=== PATIENT | male | born 1985 | race Caucasian/White ===

== ENCOUNTER 2018-09-04 14:52 | Observation (INO) | payer OTHER, SELFPAY ==
[2018-09-04] MEDS ORDERED: ACETAMINOPHEN 500 MG TAB PO PRN (15:25)
[2018-09-04] MEDS ORDERED: MORPHINE 2 MG/ML SYR IV PRN (15:25)
[2018-09-04 16:18] LABS: HDL Cholesterol 28 mg/dL (40-60); LDL Cholesterol, Calculated ND (<130); Troponin I < 0.02 ng/mL (0.0-0.045)
[2018-09-04 16:31] LABS: LDL, Direct 110 mg/dL (100-129)
[2018-09-04 16:59] VITALS: BMI 39.1
[2018-09-04 17:09] LABS: Urine Appearance CLEAR; Urine Bilirubin NEGATIVE (NEG); Urine Blood NEGATIVE (NEG); Urine Color YELLOW; Urine Glucose NEGATIVE (NEG); Urine Protein NEGATIVE (NEG); Urine Specific Gravity <=1.005 (1.005-1.030); Urine Urobilinogen 0.2 mg/dL (0.2-1.0); Urine pH 6.5 (5.0-7.0)
[2018-09-04 17:27] LABS: Urine Microscopic Reflex NO UMIC
[2018-09-04] MEDS ORDERED: NITROGLYCERIN 0.4 MG/TAB SL PRN (19:05)
[2018-09-04] MEDS ORDERED: ATORVASTATIN 40 MG TAB PO SCH (21:00)
[2018-09-04] MEDS: ENOXAPARIN 40 MG/0.4 ML SQ SCH ×2 (21:00→21:56)
[2018-09-04] MEDS: METOPROLOL TAR 50 MG TAB PO SCH (21:52)
--- NOTE | 2018-09-05 02:59 | HP ---
Date of Admission: 09/04/2018 Chief Complaint: Chest pain. Primary Care Physician: None. History Of Present Illness: The patient is a 32-year-old male with past medical history of cluster h eadaches and hypertension, who was a direct admit from [facility] for chest pain. The patient does smo ke. The patient has been in and out of his medications over the past few months and his blood pressu res were running on the high side. The patient has been complaining of some chest tightness, which i s intermittent, progressively worsening, and moderate. The patient denies any shortness of breath, n ausea, vomiting, diaphoresis, or palpitations. Denies any abdominal pain, cough, or congestion. The patient went to [place] [facility] for further evaluation. His initial workup including troponin level and EK G was negative. He was sent to [facility] for further evaluation and workup. When th e patient arrived to the floor, he was awake, alert, and oriented x3, in some mild distress, still co mplaining of some chest pain. Past Medical History: Hypertension, cluster headaches, and borderline diabetes. Past Surgical History: None. Allergies: NO KNOWN DRUG ALLERGIES. Medications: Lisinopril 40 mg, verapamil. Social History: The patient is , works at the plant at [employer], smokes half pack cigarettes daily since the age of 7, and drinks alcohol socially. No daily drinking. Family History: Diabetes and stroke run in the family. Review of Systems: An 11-point system reviewed, negative except as per HPI. Physical Examination: Vital Signs: Blood pressure 122/65, heart rate 72, respirations 12, and O2 saturation 97%. General: Awake, alert, and oriented x3, in some mild distress due to chest pain. Ill-appearing, mor bidly obese male. HEENT: Normocephalic, atraumatic. PERRLA. EOMI. Moist mucous membranes. Oropharynx is clear. No rmal dentition. Conjunctivae anicteric. Neck: Supple. No JVD. Trachea midline. CV: S1, S2. Regular rate and rhythm. A 3/6 murmur present. Peripheral pulses are present. Gastrointestinal: Abdomen is soft, nontender, and nondistended. Positive bowel sounds. No guarding or rigidity. Respiratory: Clear to auscultation bilaterally. No wheezing or stridor. No use of accessory muscle s. Extremities: No clubbing, cyanosis, or edema. No calf tenderness. Neuro: Cranial nerves 2-12 intact grossly. No focal neurological deficit. Speech is normal. Skin: No rashes. Normal skin turgor. Laboratory Data: Glucose 99, BUN 11, creatinine 1.2, calcium 9.8, sodium 143, potassium 3.8, chlorid e 111, CO2 25, and albumin 3.9. Troponin from [place] is 0.00. WBC 9.1, H and H 15.9 and 47.4, and pl atelets 308. Chest x-ray from [place] [facility] shows no acute cardiopulmonary abnormality. Troponin repeat levels less than 0.02. Triglycerides 459, cholesterol 172, and HDL 28. Assessment And Plan: A 32-year-old male with: 1.Chest pain, rule out ACS. The patient does have multiple risk factors including diabetes, hyperte nsion, nicotine dependence, and still complaining of chest pain. We will start on beta-anjelica, ZUHAIR inhibitor. The patient has received 1 mg/kg dose of Lovenox in [place]. If the pain is not relieved b y nitro sublingual, we will go ahead and give morphine. We will consult Cardiology, obtain echocardi ogram. 2.Morbid obesity. 3.Essential hypertension, uncontrolled. The patient was recently out of his medications. We will r esume home medications as appropriate. 4.Hypertriglyceridemia. 5.Borderline diabetes. We will check hemoglobin A1c. 6.GI and DVT prophylaxis addressed. Admit the patient to Med-Surg, place as observation. RAQUEL Voice ID: [id number]
[2018-09-05 05:11] LABS: Absolute Monocytes 0.8 K/uL (0.1-1.3); Absolute Neutrophil 4.9 K/uL (1.8-8.0); Basophils % 1.2 % (0-1.3); Eosinophils % 2.5 % (0-4.4); Hematocrit 44.4 % (39.6-49.0); Lymphocytes % 33.7 % (15.3-44.8); MCH 30.8 pg (27.0-35.0); MCV 89.5 fL (80-100); MPV 8.4 fL (7.6-11.3); Monocytes % 8.5 % (3.3-12.3); RBC Red Blood Cell Count 4.96 M/uL (4.33-5.43)
[2018-09-05 05:25] LABS: BUN Blood Urea Nitrogen 15 mg/dL (7-18); Bicarbonate 25 mmol/L (21-32); Glucose Level 94 mg/dL (74-106); Potassium 4.1 mmol/L (3.5-5.1); Sodium Level 139 mmol/L (136-145)
--- NOTE | 2018-09-05 08:29 | EKG ---
Test Date: 2018-09-04 Test Time: 16:35:04 Head Chef: IBETH MEASUREMENT RESULTS: Intervals: Rate: 64 MT: 158 QRSD: 88 QT: 424 QTc: 437 Rice: P: 32 MT: 158 QRS: 13 T: 47 INTERPRETIVE STATEMENTS: Normal sinus rhythm Normal ECG Compared to ECG 03/06/2004 23:55:00 Sinus arrhythmia no longer present Electronically Signed On 09-05-18 08:28:48 BEEF CATTLE SPECIALIST by Fausto Spangler
[2018-09-05] MEDS: METOPROLOL TAR 50 MG TAB PO SCH (08:45)
[2018-09-05 08:48] VITALS: BP 124/60
[2018-09-05] MEDS ORDERED: LISINOPRIL 20 MG TAB PO SCH (09:00)
[2018-09-05] MEDS ORDERED: LISINOPRIL 10 MG TAB PO SCH (09:00)
[2018-09-05] MEDS ORDERED: ENOXAPARIN 40 MG/0.4 ML SQ SCH (09:00)
[2018-09-05] MEDS ORDERED: ASPIRIN EC 81 MG TAB PO SCH (09:00)
[2018-09-05] MEDS ORDERED: HOME MED 1 EA UNK (Lisinopril [Lisinopril] 1 TAB) PO SCH (09:00)
[2018-09-05 10:43] VITALS: TEMP 97
[2018-09-05 12:58] VITALS: O2SAT 100
--- NOTE | 2018-09-05 15:02 | CON ---
CARDIOLOGY CONSULT Additional Attending Physician: Bob Jaramillo DO. Chief Complaint: Chest pain. History Of Present Illness: Mr. Martinez is getting chest pain that is not very suggestive of being damion na or an acute coronary syndrome. It is a pain that does not seem to have a pattern, comes and goes, sometimes 1 or 2 seconds, sometimes 15 minutes. When it is there, nothing in particular seems to he lp it, it is not related to exertion or meals or body position. He is not having pain now since he h as been in the hospital. An EKG, echocardiogram and cardiac enzymes are all normal. The patient has never had myocardial infarction or stroke. A nonfasting triglyceride level was 459, but his direct LDL is 110, so that his fasting triglycerides are probably close to normal. He has blood sugars that are normal. BUN and creatinine normal. Complete blood count normal. Troponins normal. Physical Examination: Vital Signs: 5 feet 9 inches, 265 pounds. General: Obese, alert, oriented, pleasant, not in distress. Lungs: Clear. Cardiac: Normal. Abdomen: Soft. Extremities: Normal. Normal pulses. Electrocardiogram shows everything is normal. I believe, the patient could be discharged home. He c an do an outpatient stress test. We could do a trial of colchicine to see if it is a case of pericar ditis, but there is no friction rub, no EKG changes, nontypical symptoms, still trying a dose of colc hicine would not be harmful at all and might help. Dr. Jaramillo has decided that if the patient is discharged, he can call my office for an o utpatient stress test. DENA Voice ID: [id number] Report ID: [id number]
--- NOTE | 2018-09-06 10:50 | DS ---
Date of Discharge: 09/05/2018 Consultants: Dr. Spangler with Cardiology. Discharge Diagnoses: 1.Chest pain; acute coronary syndrome; ruled out. 2.Obesity, BMI 39.1. 3.Essential hypertension, uncontrolled, improved. 4.Prediabetes. Hemoglobin A1c of 6.2%. Diet and exercise modification. 5.Hypertriglyceridemia. Hospital Course: The patient is a 32-year-old male who was a direct admit from [place] [facility], comes in wi th chest pain. The patient's cardiac workup was negative. EKG did not show any acute changes. ACS was ruled out. Echocardiogram was done, which showed normal ejection fraction. The patient was eval uated by Dr. Spangler, who recommended outpatient workup. The patient did have some elevated blood pre ssure over the past several weeks as he had run out of his blood pressure medication. He takes verap nurys for his cluster headaches only as needed. He takes lisinopril daily. The patient's blood press ure improved with medication adjustment. His symptoms resolved. The patient was then [facility] and was sent home in a stable condition. Activity: As tolerated. Medications: As per medication reconciliation list. Followup: Follow up with primary care physician in 2 to 3 days. Follow up with furniture finisher, Dr. Sarkis rachel, in 2 weeks. Return to ER for worsening condition. Diet: Heart healthy, calorie-restricted diet. The patient is prediabetic. He was counseled regardi ng carbohydrates. Physical Examination: General: Awake, alert, oriented, no acute distress. CV: S1, S2. No murmurs. Respiratory: Clear to auscultation bilaterally. No wheezing. Gastrointestinal: Abdomen is soft, nontender, nondistended. Positive bowel sounds. Extremities: No clubbing, cyanosis, or edema. Neuro: Nonfocal. The patient counseled extensively regarding his diet and exercise modification. He is prediabetic. He has elevated triglycerides. He needs repeat lipid panel in about a month after medications have b een started. He needs to reestablish care with the primary care physician. /NAHUM Voice ID: [id number] Report ID: [id number]
--- NOTE | 2018-09-07 09:58 | ECHO ---
HEIGHT: 5 ft 9 in WEIGHT: 265 lb 0 oz DATE OF STUDY: 09/04/[address]: Hortencia Rodriguez MD 2-DIMENSIONAL: YES M.MODE: YES DOPPLER: YES COLOR FLOW: YES TDS: NO PORTABLE: NO DEFINITY: NO BUBBLE STUDY: NO DIAGNOSIS: CHEST PAIN CARDIAC HISTORY: CATHERIZATION: NO SURGERY: NO PROSTHETIC VALVE: NO PACEMAKER: NO MEASUREMENTS (cm) DIASTOLIC (NORMALS) SYSTOLIC (NORMALS) IVSd 1.3 (0.6-1.2) LA Diam 3.8 (1.9-4.0) LVEF 61% LVIDd 4.8 (3.5-5.7) LVIDs 3.2 (2.0-3.5) %FS 33% LVPWd 1.2 (0.6-1.2) Ao Diam 2.9 (2.0-3.7) 2 DIMENSIONAL ASSESSMENT: RIGHT ATRIUM: NORMAL LEFT ATRIUM: NORMAL RIGHT VENTRICLE: NORMAL LEFT VENTRICLE: NORMAL TRICUSPID VALVE: NORMAL MITRAL VALVE: NORMAL PULMONIC VALVE: NORMAL AORTIC VALVE: NORMAL PERICARDIAL EFFUSION: NONE AORTIC ROOT: NORMAL LEFT VENTRICULAR WALL MOTION: DOPPLER/COLOR FLOW: TRACE TRICUPSID REGURGITATION. NORMAL RIGHT VENTRICULAR SYSTOLIC PRESSURE. COMMENTS: NORMAL 2D ECHOCARDIOGRAM. TRACE TRICUPSID REGURGITATION. TECHNOLOGIST: Rylee BRITT
== END 2018-09-05 11:30 | disposition home or self-care (01) ==
LOC: 2ND 14:52
PROVIDERS: ADMIT Family Medicine; ATTEND Family Medicine
DX: R07.9 Chest pain, unspecified (principal); E66.9 Obesity, unspecified; Z68.39 Body mass index [BMI] 39.0-39.9, adult; I10 Essential (primary) hypertension; R73.03 Prediabetes; E78.1 Pure hyperglyceridemia; F17.210 Nicotine dependence, cigarettes, uncomplicated
CPT/HCPCS: 36415; 80048; 80061; 81003; 83036; 84484; 85025; 93005; 93306; 94760; G0378; J1650; J2270

== ENCOUNTER 2020-06-15 09:44 | Emergency (ER) | payer OTHER ==
[2020-06-15 11:55] LABS: Protime INR 0.95
[2020-06-15 12:02] LABS: Absolute Lymphocytes (CBC) 2.3 K/uL (0.7-4.9); Hematocrit 47.9 % (39.6-49.0); Lymphocytes % 23.5 % (15.3-44.8); MPV 8.7 fL (7.6-11.3); RBC Red Blood Cell Count 5.36 M/uL (4.33-5.43)
[2020-06-15 12:28] LABS: ALT/SGPT 60 U/L (12-78); AST/SGOT 29 U/L (15-37); Albumin 4.3 g/dL (3.4-5.0); Alkaline Phosphatase 72 U/L (45-117); BUN Blood Urea Nitrogen 11 mg/dL (7-18); Bicarbonate 31 mmol/L (21-32); Bilirubin Direct 0.1 mg/dL (0-0.2); Bilirubin Total 0.4 mg/dL (0.2-1.0); Glucose Level 97 mg/dL (74-106); Magnesium 2.3 mg/dL (1.8-2.4); NT PRO-BNP 8 pg/mL (<125); Protein, Total 8.1 g/dL (6.4-8.2); Sodium Level 137 mmol/L (136-145); Troponin (Emerg Dept Use Only) < 0.02 ng/mL (0.0-0.045)
--- NOTE | 2020-06-15 13:32 | ER ---
Nurse's Notes [facility] Muna Name: Rashaun Martinez Age: 34 yrs Sex: Male : 1985 Arrival Date: 06/15/2020 Time: 09:45 Bed 26 Private MD: Diagnosis: Chest pain, unspecified Presentation: 06/15 10:08 Chief complaint: Patient states: Chest pain, L sided, non-radiating, started as ca1 intermittent, now it's constant x 3 days. Denies injury to the chest. Denies SOB with CP. Coronavirus screen: Client denies travel out of the [place] in the last 14 days. At this time, the client does not indicate any symptoms associated with coronavirus-19. Ebola Screen: Patient negative for fever greater than or equal to 101.5 degrees Fahrenheit, and additional compatible Ebola Virus Disease symptoms Patient denies exposure to infectious person. Patient denies travel to an Ebola-affected area in the 21 days before illness onset. No symptoms or risks identified at this time. Initial Sepsis Screen: Does the patient meet any 2 criteria? No. Patient's initial sepsis screen is negative. Does the patient have a suspected source of infection? No. Patient's initial sepsis screen is negative. Risk Assessment: Do you want to hurt yourself or someone else? Patient reports no desire to harm self or others. Onset of symptoms was June 15, 2020. 10:08 Method Of Arrival: Ambulatory ca1 10:08 Acuity: ANGELITA 3 ca1 Historical: - Allergies: 10:11 No Known Allergies; ca1 - PMHx: 10:11 Hypertension; ca1 - PSHx: 10:11 None; ca1 - Immunization history:: Adult Immunizations up to date. - Social history:: Smoking status: Patient reports the use of cigarette tobacco products, smokes one-half pack cigarettes per day. Screenin:43 Abuse screen: Denies threats or abuse. Denies injuries from another. Nutritional jl7 screening: No deficits noted. Tuberculosis screening: No symptoms or risk factors identified. Fall Risk IV access (20 points). Total Sapp Fall Scale indicates No Risk (0-24 pts). Assessment: 11:43 General: Appears in no apparent distress. uncomfortable, Behavior is calm, cooperative, jl7 appropriate for age. Pain: Complains of pain in left breast Pain does not radiate. Pain currently is 0 out of 10 on a pain scale. at worst was 8 out of 10 on a pain scale. Quality of pain is described as pressure, squeezing, Pain began years ago. Is intermittent. Neuro: Level of Consciousness is awake, alert, obeys commands, Oriented to person, place, time, situation. Cardiovascular: Patient's skin is warm and dry. Rhythm is regular. Respiratory: Airway is patent Respiratory effort is even, unlabored, Respiratory pattern is regular, symmetrical. Derm: Skin is pink, warm \T\ dry. 12:59 Reassessment: Patient appears in no apparent distress at this time. Patient and/or ls4 family updated on plan of care and expected duration. Pain level reassessed. Patient is alert, oriented x 3, equal unlabored respirations, skin warm/dry/pink. Vital Signs: 10:08 BP 128 / 87; Pulse 85; Resp 16 S; Temp 97.6(TE); Pulse Ox 98% on R/A; Weight 81.65 kg ca1 (R); Height 5 ft. 9 in. (175.26 cm) (R); Pain 2/10; 11:43 BP 142 / 99; Pulse 82; Resp 15; Pulse Ox 96% ; jl7 13:00 BP 120 / 57; Pulse 70; Resp 16; Pulse Ox 98% on R/A; Pain 2/10; ls4 10:08 Body Mass Index 26.58 (81.65 kg, 175.26 cm) ca1 ED Course: 09:45 Patient arrived in ED. as 10:10 Triage completed. ca1 10:11 Arm band placed on right wrist. EKG completed in triage. Results shown to MD. ca1 11:14 Joshua Mcneal PA is PHCP. jr8 11:14 Simone Mckeon MD is Attending Physician. jr8 11:21 Carin Castillo RN is Primary Nurse. jl7 11:43 Patient has correct armband on for positive identification. Placed in gown. Bed in low jl7 position. Call light in reach. Side rails up X 1. puppet master on. Pulse ox on. NIBP on. 11:43 Initial lab(s) drawn, by me, sent to lab. Inserted saline lock: 20 gauge in right jl7 antecubital area, using aseptic technique. Blood collected. Patient maintains SpO2 saturation greater than 95% on room air. 12:03 No provider procedures requiring assistance completed. ls4 12:07 Report given to RAMY Jackson. jl7 13:29 XRAY Chest (1 view) In Process Unspecified. EDMS 13:56 IV discontinued, intact, bleeding controlled, No redness/swelling at site. Pressure jl7 dressing applied. Administered Medications: No medications were administered Outcome: 13:32 Discharge ordered by . thony 13:56 Discharged to home ambulatory. jl7 13:56 Condition: stable 13:56 Discharge instructions given to patient, Instructed on discharge instructions, follow up and referral plans. Demonstrated understanding of instructions, follow-up care. 13:56 Patient left the ED. jl7 Signatures: Dispatcher [employer] EDMS Josefina Manzo Josh, PA PA jr8 Carin Castillo, RN RN jl7 Renetta Durham, RN RN ls4 Eva Rust RN RN ca1
--- NOTE | 2020-06-15 13:32 | EDPHYS ---
Physician Documentation [facility] Muna Name: Rashaun Martinez Age: 34 yrs Sex: Male : 1985 Arrival Date: 06/15/2020 Time: 09:45 Bed 26 Private MD: ED Physician Simone Mckeon HPI: 06/15 12:17 This 34 yrs old Male presents to ER via Ambulatory with complaints of Chest jr8 Pain. 12:17 Pt presents to ED c/o CP x 3 days. The pt states that he has been previously evaluated jr8 for this, but this time is much worse. Reports that he was recently put on phentermine for weight loss, despite his hx of HTN. States that last night he noticed that his BP was 156/70. Describes the pain as "squeezing", is non-radiating, and located at the L 5th intercostal space. No other symptoms reported at this time.. Historical: - Allergies: 10:11 No Known Allergies; ca1 - PMHx: 10:11 Hypertension; ca1 - PSHx: 10:11 None; ca1 - Immunization history:: Adult Immunizations up to date. - Social history:: Smoking status: Patient reports the use of cigarette tobacco products, smokes one-half pack cigarettes per day. ROS: 13:30 Eyes: Negative for injury, pain, redness, and discharge, ENT: Negative for injury, jr8 pain, and discharge, Neck: Negative for injury, pain, and swelling, Respiratory: Negative for shortness of breath, cough, wheezing, and pleuritic chest pain, Abdomen/GI: Negative for abdominal pain, nausea, vomiting, diarrhea, and constipation, Back: Negative for injury and pain, MS/Extremity: Negative for injury and deformity, Skin: Negative for injury, rash, and discoloration, Neuro: Negative for headache, weakness, numbness, tingling, and seizure. 13:30 Cardiovascular: Positive for chest pain, Negative for edema, orthopnea, palpitations, paroxysmal nocturnal dyspnea. Exam: 13:30 Eyes: Pupils equal round and reactive to light, extra-ocular motions intact. Lids and jr8 lashes normal. Conjunctiva and sclera are non-icteric and not injected. Cornea within normal limits. Periorbital areas with no swelling, redness, or edema. ENT: Nares patent. No nasal discharge, no septal abnormalities noted. Tympanic membranes are normal and external auditory canals are clear. Oropharynx with no redness, swelling, or masses, exudates, or evidence of obstruction, uvula midline. Mucous membranes moist. Neck: Trachea midline, no thyromegaly or masses palpated, and no cervical lymphadenopathy. Supple, full range of motion without nuchal rigidity, or vertebral point tenderness. No Meningismus. Chest/axilla: Normal chest wall appearance and motion. Nontender with no deformity. No lesions are appreciated. Cardiovascular: Regular rate and rhythm with a normal S1 and S2. No gallops, murmurs, or rubs. Normal PMI, no JVD. No pulse deficits. Respiratory: Lungs have equal breath sounds bilaterally, clear to auscultation and percussion. No rales, rhonchi or wheezes noted. No increased work of breathing, no retractions or nasal flaring. Abdomen/GI: Soft, non-tender, with normal bowel sounds. No distension or tympany. No guarding or rebound. No evidence of tenderness throughout. Back: No spinal tenderness. No costovertebral tenderness. Full range of motion. Skin: Warm, dry with normal turgor. Normal color with no rashes, no lesions, and no evidence of cellulitis. MS/ Extremity: Pulses equal, no cyanosis. Neurovascular intact. Full, normal range of motion. Neuro: Awake and alert, GCS 15, oriented to person, place, time, and situation. Cranial nerves II-XII grossly intact. Motor strength 5/5 in all extremities. Sensory grossly intact. Cerebellar exam normal. Normal gait. Vital Signs: 10:08 BP 128 / 87; Pulse 85; Resp 16 S; Temp 97.6(TE); Pulse Ox 98% on R/A; Weight 81.65 kg ca1 (R); Height 5 ft. 9 in. (175.26 cm) (R); Pain 2/10; 11:43 BP 142 / 99; Pulse 82; Resp 15; Pulse Ox 96% ; jl7 13:00 BP 120 / 57; Pulse 70; Resp 16; Pulse Ox 98% on R/A; Pain 2/10; ls4 10:08 Body Mass Index 26.58 (81.65 kg, 175.26 cm) ca1 MDM: 11:15 Patient medically screened. jr8 13:30 Data reviewed: vital signs, nurses notes, lab test result(s), EKG, radiologic studies, plain films. Data interpreted: Pulse oximetry: on room air is 98 %. Interpretation: normal. Counseling: I had a detailed discussion with the patient and/or guardian regarding: the historical points, exam findings, and any diagnostic results supporting the discharge/admit diagnosis, lab results, radiology results, the need for outpatient follow up, a family practitioner, to return to the emergency department if symptoms worsen or persist or if there are any questions or concerns that arise at home. ED course: Discussed with patient that he needs to stop the phentermine. To f/u with PCP. If worse to come back. Otherwise no acute abnormalities on imaging, ECG, or labs . 06/15 11:16 Order name: Basic Metabolic Panel; Complete Time: 12:06/15 11:16 Order name: CBC with Diff; Complete Time: 12:06/15 11:16 Order name: LFT's; Complete Time: 12:06/15 11:16 Order name: Magnesium; Complete Time: 12:06/15 11:16 Order name: NT PRO-BNP; Complete Time: 12:06/15 11:16 Order name: PT-INR; Complete Time: 12:06/15 10:11 Order name: EKG; Complete Time: 10:06/15 10:11 Order name: EKG - Nurse/Tech; Complete Time: 10:11 ca1 06/15 11:16 Order name: Troponin (emerg Dept Use Only); Complete Time: 12:06/15 11:16 Order name: XRAY Chest (1 view); Complete Time: 15:28 06/15 11:16 Order name: Cardiac monitoring; Complete Time: :43 06/15 11:16 Order name: IV Saline Lock; Complete Time: :43 06/15 11:16 Order name: Labs collected and sent; Complete Time: :06/15 11:16 Order name: O2 Per Protocol; Complete Time: :43 06/15 11:16 Order name: O2 Sat Monitoring; Complete Time: : Administered Medications: No medications were administered Disposition: 16:28 Co-signature as Attending Physician, Simone Mckeon MD. rn Disposition: 06/15/20 13:32 Discharged to Home. Impression: Chest pain, unspecified. - Condition is Stable. - Discharge Instructions: Nonspecific Chest Pain. - Medication Reconciliation Form, Thank You Letter, Antibiotic Education, Prescription Opioid Use form. - Follow up: Private Physician; When: 2 - 3 days; Reason: If symptoms return, Recheck today's complaints, Continuance of care, Re-evaluation by your physician. - Problem is new. - Symptoms have improved. Signatures: Dispatcher [employer] EDMS Simone Mckeon MD MD rn Joshua Mcneal PA PA jr8 Carin Castillo RN RN jl7 Eva Rust RN RN ca1 Corrections: (The following items were deleted from the chart) 13:56 13:32 06/15/2020 13:32 Discharged to Home. Impression: Chest pain, unspecified. jl7 Condition is Stable. Forms are Medication Reconciliation Form, Thank You Letter, Antibiotic Education, Prescription Opioid Use. Follow up: Private Physician; When: 2 - 3 days; Reason: If symptoms return, Recheck today's complaints, Continuance of care, Re-evaluation by your physician. Problem is new. Symptoms have improved. jr8
--- NOTE | 2020-06-15 13:53 | RAD REPORT ---
EXAM DESCRIPTION: RAD - Chest Single View - 06/15/2020 1:28 pm CLINICAL HISTORY: CHEST PAIN COMPARISON: None TECHNIQUE: AP portable chest image was obtained 06/15/2020 1:28 pm . FINDINGS: Lungs are clear. Heart and vasculature are normal. No measurable pleural effusion and no p neumothorax. No acute bony abnormality seen. No acute aortic findings suspected. IMPRESSION: No acute cardiopulmonary process.
[2020-06-15 14:08] VITALS: TEMP 97.6
[2020-06-15 14:12] VITALS: BP 120/57; O2SAT 98
== END 2020-06-15 13:56 | disposition home or self-care (01) ==
LOC: ER 09:44
DX: R07.9 Chest pain, unspecified (principal); I10 Essential (primary) hypertension; F17.210 Nicotine dependence, cigarettes, uncomplicated
CPT/HCPCS: 36415; 71045; 80048; 80076; 83735; 83880; 84484; 85025; 85610; 93005; 99285